=== PATIENT | female | born 1975 | race Two or more races ===

== ENCOUNTER 2020-07-27 11:22 | Day surgery (SDC) | payer OTHER ==
[~2020-07-27] VITALS: Ht 162.6 cm; Wt 56.8 kg
[2020-07-27] MEDS ORDERED: NO HOME MEDS PER PT (12:07)
[2020-07-27] MEDS ORDERED: CHLORHEXIDINE 15 ML UDC ONE (12:11)
[2020-07-27 12:19] LABS: HCG UR SG 1.016 (1.003-1.030)
[2020-07-27 12:30] VITALS: BP 132/82
[2020-07-27] MEDS ORDERED: CHLORHEXIDINE 15 ML UDC PO ONE (12:30)
[2020-07-27] MEDS ORDERED: LACTATED RINGERS 1,000 ML IV SCH (12:30)
[2020-07-27 12:44] LABS: BASOPHILS % (AUTO) 0 % (0-1); EOSINOPHILS % (AUTO) 1 % (1-7); LYMPHOCYTES % (AUTO) 31 % (22-44); MEAN CORPUSCULAR HEMOGLOBIN 28.8 pg (27.0-34.8); MEAN CORPUSCULAR HGB CONC 33.9 g/dL (32.4-35.8); MEAN PLATELET VOLUME 9.5 fL (7.4-10.4); MONOCYTES % (AUTO) 8 % (2-9); NEUTROPHILS % (AUTO) 61 % (42-75); PLATELET COUNT 153 x10^3/uL (130-400); RED BLOOD COUNT 5.03 x10^6/uL (3.82-5.3); RED CELL DISTRIBUTION WIDTH 13.3 % (9.6-15.2)
[2020-07-27 12:53] LABS: MD NO
[2020-07-27 12:54] LABS: ANION GAP 6 mmol/L (5-15); CALCIUM 8.9 mg/dL (8.5-10.1); CHLORIDE 109 mmol/L (98-107)
[2020-07-27 12:58] LABS: ALANINE AMINOTRANSFERASE 26 U/L (12-78); ALKALINE PHOSPHATASE 50 U/L (45-117); BILIRUBIN,TOTAL 0.8 mg/dL (0.2-1.0); CREATININE 0.74 mg/dL (0.55-1.02); TOTAL PROTEIN 7.6 g/dL (6.4-8.2)
[2020-07-27] MEDS ORDERED: PROMETHAZINE 25 MG/ML, 1ML IVPush PRN (13:00)
[2020-07-27] MEDS ORDERED: HALOPERIDOL 5 MG/ML IV PRN (13:00)
[2020-07-27] MEDS ORDERED: MEPERIDINE/PF 25MG/0.5ML IVPush PRN (13:00)
[2020-07-27] MEDS ORDERED: FENTANYL PF 100 MCG/2ML IV PRN (13:00)
[2020-07-27] MEDS ORDERED: HYDROmorphone 1 MG/ML, 1ML INJ IVPush PRN (13:00)
[2020-07-27] MEDS ORDERED: ACETAMINOPHEN 325 MG TABLET PO PRN (13:00)
[2020-07-27] MEDS ORDERED: LABETALOL 5MG/ML, 20ML IV PRN (13:00)
[2020-07-27] MEDS ORDERED: OXYcodone 5 MG/5 ML ORAL.SOL UDC PO PRN (13:00)
[2020-07-27] MEDS ORDERED: hydrALAzine 20 MG/ML, 1ML IV PRN (13:00)
[2020-07-27] MEDS ORDERED: DIPHENHYDRAMINE 50 MG/ML, 1ML IVPush PRN (13:00)
[2020-07-27] MEDS ORDERED: MIDAZOLAM 1 MG/ML, 2ML ONE (13:10)
[2020-07-27] MEDS ORDERED: FENTANYL PF 100 MCG/2ML ONE ×2 (13:10→14:27)
[2020-07-27] MEDS ORDERED: BUPIVACAINE/PF 0.5% ONE (13:11)
[2020-07-27] MEDS ORDERED: EPINEPHRINE 1 MG/ML, 1ML ONE (13:11)
[2020-07-27] MEDS ORDERED: DEXAMETHASONE 4 MG/ML, 1ML ONE (13:48)
[2020-07-27] MEDS ORDERED: ONDANSETRON 2MG/ML, 2ML ONE (13:48)
[2020-07-27] MEDS ORDERED: CEFAZOLIN 1,000 MG ONE (13:48)
[2020-07-27] MEDS ORDERED: PROPOFOL 10 MG/ML, 20ML ONE (13:48)
[2020-07-27] MEDS ORDERED: KETOROLAC 30 MG/1 ML ONE (14:00)
[2020-07-27] MEDS ORDERED: KETOROLAC 30 MG/1 ML IVPush ONE (14:00)
[2020-07-27] MEDS ORDERED: HYDR-2214 PO ×2 (14:06→14:33)
[2020-07-27] MEDS ORDERED: ACETAMINOPHEN 650 MG/20.3 ML UDC ONE (14:26)
[2020-07-27] MEDS ORDERED: OXYcodone 5 MG/5 ML ORAL.SOL UDC ONE (14:27)
== END 2020-07-27 15:47 | disposition home or self-care (01) ==
LOC: OR 11:22
PROVIDERS: ATTEND Surgery
DX: R92.8 Other abnormal and inconclusive findings on diagnostic imaging of breast (principal); D48.61 Neoplasm of uncertain behavior of right breast; Z20.822 Contact with and (suspected) exposure to COVID-19
CPT/HCPCS: 19120; 36415; 80053; 81025; 85025; 87635; 88305; J0171; J0690; J1100; J1885; J2250; J2405; J2704; J3010; J7120